=== PATIENT | male | born 1995 ===

== ENCOUNTER → 2019-07-28 | Outpatient (CLI) | payer BC | END | disposition home or self-care (01) | LOC: PREOP 05:46 | PROVIDERS: ATTEND Podiatrist Foot & Ankle Surgery | DX: Z01.818 Encounter for other preprocedural examination (principal) ==

== ENCOUNTER → 2019-08-08 | Outpatient (CLI) | payer BC | END | disposition home or self-care (01) | LOC: PREOP 06:29 | PROVIDERS: ATTEND Podiatrist Foot & Ankle Surgery | DX: Z01.818 Encounter for other preprocedural examination (principal) ==